=== PATIENT | female | born 1960 | race Caucasian/White ===

== ENCOUNTER 2019-11-21 07:33 | Day surgery (SDC) | payer OTHER ==
[2019-11-21] MEDS ORDERED: Propofol 200 MG/20 ML SDV ONE (08:16)
[2019-11-21] MEDS ORDERED: Midazolam 1 MG/ML 2 ML SDV ONE (08:16)
[2019-11-21] MEDS ORDERED: fentaNYL 100 MCG/2 ML SDV ONE (08:16)
[2019-11-21] MEDS ORDERED: Sodium Chloride 0.9% 1,000 ML IV SCH (08:30)
--- NOTE | 2019-11-21 12:50 | OR ---
DATE OF PROCEDURE: 11/21/2019 SURGEON: Natanael Rodriguez MD PROCEDURE: Colonoscopy. FINDINGS: Normal colonoscopy. PREOPERATIVE DIAGNOSIS: Screening colonoscopy. POSTOPERATIVE DIAGNOSIS: Screening colonoscopy. RISKS: Risks, benefits, alternatives, and limitations including, but not limited to infection, bleeding, and perforation were explained to the patient, who wished to proceed. PROCEDURE IN DETAIL: The patient was placed in left lateral decubitus position. Digital rectal exam was performed without abnormality. Scope was introduced and advanced atraumatically to the ileocecal valve. A photo was taken of this. Scope was brought back through the ascending, transverse, descending colon, and retroflexed. No polyps. No masses. No old or new blood. No diverticulosis. No abnormalities on retroflexion. The patient tolerated the procedure well. Natanael Rodriguez MD /[id number]
== END 2019-11-21 10:01 | disposition home or self-care (01) ==
LOC: JP.SDS 07:33
PROVIDERS: ATTEND Surgery
DX: Z12.11 Encounter for screening for malignant neoplasm of colon (principal); G47.33 Obstructive sleep apnea (adult) (pediatric); E78.5 Hyperlipidemia, unspecified; I10 Essential (primary) hypertension; E66.9 Obesity, unspecified; Z68.42 Body mass index [BMI] 45.0-49.9, adult
CPT/HCPCS: 45378; J2250; J2704; J3010; J7030

== ENCOUNTER 2024-06-03 07:05 | Inpatient (IN) | payer BC ==
[2024-06-03] MEDS ORDERED: fentaNYL 250 MCG/5 ML SDV ONE (07:26)
[2024-06-03] MEDS ORDERED: Rocuronium 50 MG/5 ML Vial ONE (07:26)
[2024-06-03] MEDS ORDERED: Neostigmine Methylsulfate 10 MG/10 ML MDV ONE (07:26)
[2024-06-03] MEDS ORDERED: Ondansetron 4 MG/2 ML SDV ONE (07:26)
[2024-06-03] MEDS ORDERED: Glycopyrrolate 0.2 MG/ML 5 ML MDV ONE (07:26)
[2024-06-03] MEDS ORDERED: Dexamethasone 4 MG/ML SDV ONE (07:26)
[2024-06-03] MEDS ORDERED: Propofol 200 MG/20 ML SDV ONE (07:26)
[2024-06-03 07:30] LABS: HEMATOCRIT 42.7 % (34.3-46.0); HEMOGLOBIN 14.8 g/dL (11.2-15.5); MEAN CORPUSCULAR HGB CONC 34.7 g/dL (31.6-35.5); MEAN CORPUSCULAR VOLUME 86.4 fL (81.4-99.0); RED BLOOD CELL COUNT 4.94 M/uL (3.77-5.24); WHITE BLOOD CELL COUNT,WBC 6.6 K/uL (3.2-11.0)
[2024-06-03 07:51] LABS: A/G RATIO 1.1 (1.2-2.2); ALANINE AMINOTRANSFERASE,ALT 31 U/L (12-78); ALBUMIN 4.1 g/dL (3.4-5.0); ALKALINE PHOSPHATASE 108 U/L (46-116); ANION GAP 10.8 mmol/L (5.0-14.0); ASPARTATE AMNIOTRANSFERASE,AST 28 U/L (15-37); BILIRUBIN TOTAL 0.4 mg/dL (0.2-1.0); BLOOD UREA NITROGEN,BUN 16 mg/dL (7-18); CALCIUM 9.3 mg/dL (8.5-10.1); CARBON DIOXIDE,CO2 33 mmol/L (21-32); CHLORIDE,CL 103 mmol/L (100-108); CREATININE 0.8 mg/dL (0.6-1.0); ESTIMATED GFR 83 mL/min (>60); GLUCOSE RANDOM 90 mg/dL (74-106); POTASSIUM,K 3.8 mmol/L (3.6-5.2); PROTEIN TOTAL,TP 7.7 g/dL (6.4-8.2); SODIUM,NA 143 mmol/L (140-148)
[2024-06-03] MEDS: Lactated Ringers 1,000 ML IV SCH (09:10)
[2024-06-03] MEDS: ceFAZolin 2 GM in Premix Bag 1 BAG IV ONE (10:55)
[2024-06-03] MEDS ORDERED: Lidocaine 1% 2 ML ONE (10:56)
[2024-06-03] MEDS ORDERED: Sodium Chloride 0.9% 10 ML ONE ×2 (11:16→11:19)
[2024-06-03] MEDS ORDERED: ceFAZolin 1 GM Vial ONE (11:16)
[2024-06-03] MEDS: Isosulfan Blue 5 ML SDV ONE (11:25)
[2024-06-03] MEDS ORDERED: Lactated Ringers 1,000 ML ONE (11:58)
[2024-06-03] MEDS ORDERED: Ketorolac 30 MG/ML SDV ONE (12:58)
[2024-06-03] MEDS: Bupivacaine 0.5% 50 ML MDV ONE (13:00)
[2024-06-03] MEDS: Lidocaine 1% with EPINEPHrine 1:100,000 50 ML MDV ONE (13:00)
[2024-06-03] MEDS ORDERED: fentaNYL 100 MCG/2 ML SDV ONE (13:06)
[2024-06-03] MEDS ORDERED: Promethazine 25 MG/ML SDV IM PRN (13:10)
[2024-06-03] MEDS ORDERED: Benzocaine/Cetylpyridinium/Menthol Lozenge MUCMEM PRN (13:10)
[2024-06-03] MEDS ORDERED: hydrOXYzine HCL 100 MG/2 ML SDV IM PRN (13:10)
[2024-06-03] MEDS ORDERED: Naloxone 0.4 MG/ML SDV IVPUSH PRN (13:10)
[2024-06-03] MEDS ORDERED: diphenhydrAMINE 50 MG/ML SDV IVPUSH PRN (13:10)
[2024-06-03] MEDS ORDERED: Scopalamine 1mg/3day Transdermal Patch ONE (13:11)
[2024-06-03] MEDS ORDERED: fentaNYL 50 MCG/ML SDV IVPUSH PRN ×2 (13:28)
[2024-06-03] MEDS: Acetaminophen/oxyCODONE 325-5 MG Tab PO PRN (14:19)
[2024-06-03] MEDS: Sodium Chloride 0.9% 500 ML IV ONE ×2 (15:50→16:46)
[2024-06-03 16:14] LABS: HEMATOCRIT 30.6 % (34.3-46.0); HEMOGLOBIN 10.5 g/dL (11.2-15.5); MEAN CORPUSCULAR HEMOGLOBIN 29.8 pg (31.6-35.5); MEAN CORPUSCULAR HGB CONC 34.3 g/dL (31.6-35.5); MEAN CORPUSCULAR VOLUME 86.9 fL (81.4-99.0); RED BLOOD CELL COUNT 3.52 M/uL (3.77-5.24); WHITE BLOOD CELL COUNT,WBC 12.3 K/uL (3.2-11.0)
[2024-06-03 16:28] LABS: CALCIUM 8.3 mg/dL (8.5-10.1); EST CRCL DRUG DOSING (CG) 48.25 mL/min
[2024-06-03 16:37] LABS: MAGNESIUM 1.8 mg/dL (1.8-2.4)
[2024-06-03 16:38] LABS: TROPONIN I HIGH SENSITIVITY < 4.0 pg/mL (<=60.3)
[2024-06-03] MEDS: [UNRECOGNIZED DRUG - OTHER] SCH (17:23)
[2024-06-03] MEDS: Enoxaparin 40 MG/0.4 ML Syringe SUBCUT SCH (17:40)
[2024-06-03] MEDS: Sodium Chloride 0.9% 1,000 ML IV ONE (18:28)
[2024-06-03] MEDS: Ondansetron 4 MG/2 ML SDV IVPUSH PRN (22:30)
[2024-06-04 05:51] LABS: BASOPHILS PERCENT AUTO 0.2 % (0.1-1.3); EOSINOPHILS PERCENT AUTO 0.1 % (0.0-5.4); HEMATOCRIT 28.3 % (34.3-46.0); IMMATURE GRAN ABSOLUTE AUTO 0.05 K/uL (0.00-0.23); IMMATURE GRAN PERCENT AUTO 0.4 % (0.0-0.7); LYMPHOCYTES ABSOLUTE AUTO 1.77 K/uL (0.8-3.3); LYMPHOCYTES PERCENT AUTO 14.1 % (11.4-47.7); MEAN CORPUSCULAR HEMOGLOBIN 30.2 pg (31.6-35.5); MEAN CORPUSCULAR HGB CONC 35.3 g/dL (31.6-35.5); MEAN CORPUSCULAR VOLUME 85.5 fL (81.4-99.0); MONOCYTES ABSOLUTE AUTO 0.98 K/uL (0.20-0.90); MONOCYTES PERCENT AUTO 7.8 % (3.3-12.6); NEUTROPHILS ABSOLUTE AUTO 9.72 K/uL (1.0-7.6); NEUTROPHILS PERCENT AUTO 77.4 % (40.0-78.1); RED BLOOD CELL COUNT 3.31 M/uL (3.77-5.24); WHITE BLOOD CELL COUNT,WBC 12.6 K/uL (3.2-11.0)
[2024-06-04 06:12] LABS: CALCIUM 8.2 mg/dL (8.5-10.1); EST CRCL DRUG DOSING (CG) 48.25 mL/min
[2024-06-04 06:44] LABS: BASOPHILS ABSOLUTE AUTO 0.02 K/uL (0.00-0.10); EOSINOPHILS ABSOLUTE AUTO 0.01 K/uL (0.00-0.40)
[2024-06-04] MEDS: Sodium Chloride 0.9% 500 ML IV ONE (14:18)
[2024-06-04] MEDS ORDERED: Sodium Chloride 0.9% 1,000 ML IV SCH (19:30)
[2024-06-04] MEDS ORDERED: Lactated Ringers 1,000 ML IV SCH (19:30)
[2024-06-04] MEDS: Acetaminophen 325 MG Tab PO PRN (23:17)
[2024-06-06] MEDS: Bisacodyl 5 MG Tab PO PRN (12:05)
[2024-06-06] MEDS: Acetaminophen/oxyCODONE 325-5 MG Tab PO PRN (13:47)
[2024-06-06] MEDS: Docusate Sodium 100 MG Cap PO PRN (23:42)
[2024-06-07 05:49] LABS: HEMOGLOBIN 8.7 g/dL (11.2-15.5); MEAN CORPUSCULAR HEMOGLOBIN 30.5 pg (31.6-35.5); MEAN CORPUSCULAR HGB CONC 33.5 g/dL (31.6-35.5); MEAN CORPUSCULAR VOLUME 91.2 fL (81.4-99.0); RED BLOOD CELL COUNT 2.85 M/uL (3.77-5.24); WHITE BLOOD CELL COUNT,WBC 7.8 K/uL (3.2-11.0)
== END 2024-06-07 13:03 | disposition home or self-care (01) | DRG 362 ==
LOC: JP.SDS 07:05 → JP.MS 13:58 → UNDOADMOB 13:58 → JP.ICU 13:58 → OBSVTOIN 17:12 → INTOOBSV 17:12
PROVIDERS: ADMIT Surgery; ATTEND Surgery
PROC: 30233N1 Transfusion of Nonautologous Red Blood Cells into Peripheral Vein, Percutaneous Approach (ICD-10-PCS; 2024-06-03)
PROC: 0HTU0ZZ Resection of Left Breast, Open Approach (ICD-10-PCS; principal; 2024-06-03 11:00)
DX: C50.612 Malignant neoplasm of axillary tail of left female breast (principal); E78.2 Mixed hyperlipidemia; I10 Essential (primary) hypertension; I51.7 Cardiomegaly; G47.33 Obstructive sleep apnea (adult) (pediatric); E66.812 Obesity, class 2; E78.00 Pure hypercholesterolemia, unspecified; Z98.890 Other specified postprocedural states; Z88.8 Allergy status to other drugs, medicaments and biological substances; Z86.16 Personal history of COVID-19; Z68.32 Body mass index [BMI] 32.0-32.9, adult
CPT/HCPCS: 36415; 36430; 71045; 78195; 78195-26; 80048; 80053; 83735; 84484; 85018; 85025; 85027; 86850; 86900; 86901; 86920; 86922; 93005; 93010; 97161-GP; 97165-GO; 97530-GP; 97535-GP; 99222; 99232; A9270-GY; A9541; J0665; J0690; J1100; J1596; J1885; J2405; J2704; J2710; J3010; J3490; J7030; J7040; J7120; P9016; P9017; Q9968

== ENCOUNTER 2024-06-30 07:21 | Day surgery (SDC) | payer BC ==
[~2024-06-30 07:21] MED LIST: Midazolam 1 MG/ML 2 ML SDV ONE; Propofol 200 MG/20 ML SDV ONE; fentaNYL 100 MCG/2 ML SDV ONE
[2024-06-30] MEDS: Lactated Ringers 1,000 ML IV SCH (08:31)
[2024-06-30] MEDS: ceFAZolin 2 GM in Premix Bag 1 BAG IV ONE (09:10)
[2024-06-30] MEDS: Bupivacaine 0.25%/EPINEPHrine 1:200,000 30 ML SDV ONE (09:46)
== END 2024-06-30 11:19 | disposition home or self-care (01) ==
LOC: JP.SDS 07:21
PROVIDERS: ATTEND Surgery
DX: C50.919 Malignant neoplasm of unspecified site of unspecified female breast (principal)
CPT/HCPCS: 71045; 71045-26; 77001; C1788; C1894; J0690; J1642; J2250; J2704; J3010; J7120

== ENCOUNTER 2025-02-05 08:09 | Emergency (ER) | payer BC | END 2025-02-05 09:54 | disposition home or self-care (01) | LOC: JP.ED 08:09 | DX: S52.572A Other intraarticular fracture of lower end of left radius, initial encounter for closed fracture (principal); S52.532A Colles' fracture of left radius, initial encounter for closed fracture; Z79.82 Long term (current) use of aspirin; Z79.899 Other long term (current) drug therapy; Z91.048 Other nonmedicinal substance allergy status; Z88.1 Allergy status to other antibiotic agents; Z88.8 Allergy status to other drugs, medicaments and biological substances; W01.0XXA Fall on same level from slipping, tripping and stumbling without subsequent striking against object, initial encounter; Y93.41 Activity, dancing | CPT/HCPCS: 73090-26-LT; 73090-LT; 99283 ==